=== PATIENT | male | born 1975 | race Caucasian/White ===

== ENCOUNTER 2018-12-23 11:52 | Emergency (ER) | payer BC, OTHER ==
[2018-12-23] MEDS ORDERED: HYDROmorphone 1 MG/ML Syringe IVPUSH ONE ×2 (12:11→13:26)
--- NOTE | 2018-12-23 12:12 | EDM.PDOC ---
ED HPI GENERAL MEDICAL PROBLEM - General Chief Complaint: Trauma Stated Complaint: L SHOULDER/BACK PAIN DUE TO FALL Time Seen by Provider: 12/23/18 11:59 Source of Information: Reports: Patient History Limitations: Reports: No Limitations - History of Present Illness INITIAL COMMENTS - FREE TEXT/NARRATIVE: 43 y/o previously healthy male presents with severe L chest pain after falling on the ice. He was walking in to work when he slipped. Feet went out from under him and he fell back. Struck his upper back on the ice. Thinks he may have hit his head, unsure, no LOC. Had immediate severe pain in left back and front chest wall. Also has pain in L shoulder, worse with arm movements. CP is worse with inspiration. Doesn't really feel short of breath. No significant headache. Mild neck soreness. Mild left back pain, no mid back pain. Denies lower extremity injury. Pain is currently quite severe. - Related Data Allergies Allergy/AdvReac Type Severity Reaction Status Date / Time No Known Allergies Allergy Verified 12/23/18 12:04 Home Meds: Home Meds Allopurinol [Zyloprim] 100 mg PO DAILY 12/23/18 [History] Ibuprofen 800 mg PO TID PRN #40 tablet 12/23/18 [Rx] Losartan [Cozaar] 25 mg PO DAILY 12/23/18 [History] Ondansetron [Zofran ODT] 4 mg PO Q6H PRN #24 tab.dis 12/23/18 [Rx] Rosuvastatin [Crestor] 20 mg PO DAILY 12/23/18 [History] oxyCODONE 5 mg PO QID PRN #30 tab 12/23/18 [Rx] Review of Systems - Review of Systems Review Of Systems: See Below Constitutional: Denies: Fever Eyes: Reports: No Symptoms Ears: Reports: No Symptoms Nose: Reports: No Symptoms Mouth/Throat: Reports: No Symptoms Respiratory: Reports: Shortness of Breath Cardiovascular: Reports: Chest Pain GI/Abdominal: Reports: No Symptoms Genitourinary: Reports: No Symptoms Musculoskeletal: Reports: Shoulder Pain. Denies: Neck Pain Skin: Reports: No Symptoms. Denies: Wound Neurological: Reports: No Symptoms Psychiatric: Reports: No Symptoms ED EXAM, GENERAL - Physical Exam Exam: See Below Exam Limited By: No Limitations General Appearance: Alert, WD/WN, Moderate Distress Eye Exam: Bilateral Eye: Normal Inspection Ears: Normal External Exam Nose: Normal Inspection Throat/Mouth: Normal Inspection, Normal Oropharynx, Normal Voice, No Airway Compromise Head: Atraumatic, Normocephalic Neck: Normal Inspection, Supple, Non-Tender, Full Range of Motion Respiratory/Chest: No Respiratory Distress, Lungs Clear, Normal Breath Sounds, No Accessory Muscle Use, Other (+diffuse L anterior and posterior chest TTP, no crepitus) Cardiovascular: Normal Peripheral Pulses, Regular Rate, Rhythm, No Murmur GI/Abdominal: Soft, Non-Tender, No Distention. No: Rebound Back Exam: Normal Inspection. No: Paraspinal Tenderness, Vertebral Tenderness Extremities: Normal Inspection, Other (limited ROM of L shoulder due to provokation of chest pain with arm movements. No anterior shoulder TTP. Mild posterior shoulder TTP. Normal alignment. No humerus/elbow or additional upper extremity TTP. Distal motor/circulation intact.) Neurological: Alert, Oriented, Normal Cognition, No Motor/Sensory Deficits Psychiatric: Normal Affect, Normal Mood Skin Exam: Warm, Dry, Intact, Normal Color, No Rash Course - Vital Signs Last Recorded V/S: Last Vital Signs Temp 36.7 C 12/23/18 12:00 Pulse 87 12/23/18 12:00 Resp 18 12/23/18 12:00 BP 170/120 H 12/23/18 12:00 Pulse Ox 100 12/23/18 12:00 - Orders/Labs/Meds Orders: Active Orders 24 hr Category Date Time Status PATIENT RETYPE [BBK] Routine Lab 12/23/18 14:36 Ordered UA W/MICROSCOPIC [URIN] Stat Lab 12/23/18 13:27 Ordered Sodium Chloride 0.9% [Saline Flush] Med 12/23/18 13:29 Active 10 ml FLUSH ONETIME PRN Medication Orders Sodium Chloride (Saline Flush) 10 ml FLUSH ONETIME PRN PRN Reason: IV FLUSH Last Admin: 12/23/18 14:26 Dose: 10 ml Labs: Laboratory Tests 12/23/18 12/23/18 12/23/18 Range/Units 13:35 13:35 13:35 WBC 14.73 H (4.23-9.07) K/mm3 RBC 6.09 H (4.63-6.08) M/mm3 Hgb 17.6 H (13.7-17.5) gm/L Hct 50.1 (40.1-51.0) % MCV 82.3 (79.0-92.2) fl MCH 28.9 (25.7-32.2) pg MCHC 35.1 (32.2-35.5) g/dl RDW Std Deviation 38.2 (35.1-43.9) fL Plt Count 172 (163-337) K/mm3 MPV 10.0 (9.4-12.3) fl Neut % (Auto) 81.8 H (34.0-67.9) % Lymph % (Auto) 12.8 L (21.8-53.1) % [place] % (Auto) 4.9 L (5.3-12.2) % Eos % (Auto) 0.1 L (0.8-7.0) Baso % (Auto) 0.2 (0.1-1.2) % Neut # (Auto) 12.04 H (1.78-5.38) K/mm3 Lymph # (Auto) 1.89 (1.32-3.57) K/mm3 [place] # (Auto) 0.72 (0.30-0.82) K/mm3 Eos # (Auto) 0.02 L (0.04-0.54) K/mm3 Baso # (Auto) 0.03 (0.01-0.08) K/mm3 Manual Slide Review Normal smear Sodium 140 (136-145) mEq/L Potassium 4.0 (3.5-5.1) mEq/L Chloride 102 (98-107) mEq/L Carbon Dioxide 25 (21-32) mEq/L Anion Gap 17.0 H (5-15) BUN 15 (7-18) mg/dL Creatinine 1.1 (0.7-1.3) mg/dL Est Cr Clr Drug Dosing 110.79 mL/min Estimated GFR (MDRD) > 60 (>60) mL/min BUN/Creatinine Ratio 13.6 L (14-18) Glucose 117 H (74-106) mg/dL Calcium 9.0 (8.5-10.1) mg/dL Total Bilirubin 0.6 (0.2-1.0) mg/dL AST 25 (15-37) U/L ALT 46 (16-63) U/L Alkaline Phosphatase 85 (46-116) U/L Total Protein 7.9 (6.4-8.2) g/dl Albumin 4.5 (3.4-5.0) g/dl Globulin 3.4 gm/dL Albumin/Globulin Ratio 1.3 (1-2) Blood Type O POSITIVE Gel Antibody Screen Negative Meds: Medications Generic Name Dose Route Start Last Admin Trade Name Freq PRN Reason Stop Dose Admin Sodium Chloride 10 ml 12/23/18 13:29 12/23/18 14:26 Saline Flush FLUSH 10 ml ONETIME PRN Administration IV FLUSH Discontinued Medications Generic Name Dose Route Start Last Admin Trade Name Freq PRN Reason Stop Dose Admin Hydromorphone HCl 1 mg 12/23/18 12:11 12/23/18 12:20 Dilaudid IVPUSH 12/23/18 12:12 1 mg ONETIME ONE Administration Hydromorphone HCl 2 mg 12/23/18 13:26 12/23/18 13:44 Dilaudid IVPUSH 12/23/18 13:27 2 mg ONETIME ONE Administration Iopamidol 100 ml 12/23/18 13:29 12/23/18 14:23 Isovue-300 (61%) IVPUSH 12/23/18 13:30 100 ml ONETIME ONE Administration Ketorolac Tromethamine 30 mg 12/23/18 15:02 12/23/18 15:06 Toradol IVPUSH 12/23/18 15:03 30 mg ONETIME ONE Administration Ondansetron HCl 4 mg 12/23/18 15:03 12/23/18 15:07 Zofran IVPUSH 12/23/18 15:04 4 mg ONETIME ONE Administration Oxycodone HCl 10 mg 12/23/18 14:40 Oxycodone PO 12/23/18 14:41 ONETIME ONE - Re-Assessments/Exams Free Text/Narrative Re-Assessment/Exam: 12/23/18 13:55 XR chest and ribs show at least 4 left sided rib fractures. No ptx. Will scan chest. Departure - Departure Time of Disposition: 16:19 Disposition: Home, Self-Care 01 Clinical Impression: Ribs, multiple fractures Qualifiers: Encounter type: initial encounter Fracture type: closed Laterality: left Qualified Code(s): S22.42XA - Multiple fractures of ribs, left side, initial encounter for closed fracture - Discharge Information Prescriptions: Ibuprofen 800 mg PO TID PRN #40 tablet PRN Reason: Pain Ondansetron [Zofran ODT] 4 mg PO Q6H PRN #24 tab.dis PRN Reason: Nausea oxyCODONE 5 mg PO QID PRN #30 tab PRN Reason: Pain Referrals: Khadra Arambula PA-C [Primary Care Provider] - Forms: ED Department Discharge Additional Instructions: 1. Take ibuprofen as prescribed. OK to take acetaminophen as prescribed for pain as well. OK to take both meds together - they work and are cleared by your body in different ways. 2. Take oxycodone as prescribed for severe pain. OK to double dose to 10mg per dose if needed. Take lowest effective dose to control your pain - you will have drowsiness and confusion when taking this med so no driving or working. 3. Take ondansetron as needed for nausea. 4. Take a stool softener and/or laxative when taking oxycodone - it will cause constipation. 5. Follow up with your regular provider as soon as possible 6. Return to the ED as needed for severe pain, difficulty breathing, fever, or other concerning symptoms - My Orders Last 24 Hours: My Active Orders 12/23/18 13:27 UA W/MICROSCOPIC [URIN] Stat 12/23/18 13:29 Sodium Chloride 0.9% [Saline Flush] 10 ml FLUSH ONETIME PRN 12/23/18 14:36 PATIENT RETYPE [BBK] Routine - Assessment/Plan Last 24 Hours: My Active Orders 12/23/18 13:27 UA W/MICROSCOPIC [URIN] Stat 12/23/18 13:29 Sodium Chloride 0.9% [Saline Flush] 10 ml FLUSH ONETIME PRN 12/23/18 14:36 PATIENT RETYPE [BBK] Routine
[2018-12-23] MEDS ORDERED: Sodium Chloride 0.9% 10 ML Syringe FLUSH PRN (13:29)
[2018-12-23] MEDS ORDERED: Iopamidol 612 MG/ML 100 ML Bottle IVPUSH ONE (13:29)
--- NOTE | 2018-12-23 13:35 | CR ---
Left shoulder: Three views of the left shoulder were obtained. Calcifications are seen within the left axilla most likely due to calcified lymph nodes. Acromioclavicular and glenohumeral joints are unremarkable. No fracture or other abnormality is seen within the left shoulder. Impression: 1. Incidental findings. No acute abnormality seen within the left shoulder. Diagnostic code #2
--- NOTE | 2018-12-23 13:35 | CR ---
Chest and left ribs: Frontal view of the chest was obtained as well as four views left ribs. Findings: Fractures are noted within at least the fourth, fifth, sixth and seventh ribs. No pneumothorax is appreciated at this time. Slight bibasilar atelectasis is seen. Heart size and mediastinum are normal. Impression: 1. At least 4 left-sided rib fractures as noted above. 2. Mild bibasilar atelectasis. Diagnostic code #3
[2018-12-23] MEDS ORDERED: oxyCODONE 5 MG Tab PO ONE (14:40)
--- NOTE | 2018-12-23 14:47 | CT ---
CT chest Technique: Multiple axial sections through the chest were obtained. Intravenous contrast was utilized. Comparison: Previous chest x-ray performed earlier on the same day (12/23/18). Findings: Small portion of the visualized lung bases shows nothing acute. No pericardial thickening is seen. Mediastinum and hilar regions are unremarkable. No axillary adenopathy is seen. Slight parenchymal density is noted within the lingula most likely due to minimal atelectasis. Lungs otherwise are clear. No pneumothorax is seen. Nondisplaced fracture is seen within the posterior left fourth rib. Mildly displaced fracture is seen within the posterior left fifth rib and sixth rib. Nondisplaced fracture is seen within the posterior seventh rib. No additional fractures are seen within the ribs. Vertebral body heights and disc spaces are maintained. No discrete abnormality seen within the thoracic spine or sternum. Impression: 1. Four posterior left-sided rib fractures as described above. 2. Slight atelectasis within the lingula. 3. CT study of the chest is otherwise unremarkable. Diagnostic code #3
[2018-12-23] MEDS ORDERED: Ketorolac 30 MG/ML SDV IVPUSH ONE (15:02)
[2018-12-23] MEDS ORDERED: Ondansetron 4 MG/2 ML SDV IVPUSH ONE (15:03)
== END 2018-12-23 16:52 | disposition home or self-care (01) ==
LOC: JD.ED 11:52
DX: S22.42XA Multiple fractures of ribs, left side, initial encounter for closed fracture (principal); Z79.899 Other long term (current) drug therapy; W00.9XXA Unspecified fall due to ice and snow, initial encounter
CPT/HCPCS: 36415; 71101; 71260; 73030; 80053; 85025; 86850; 86900; 86901; 96374; 96375; 96376; 99284; A9270; J1170; J1885; J2405; Q9967